=== PATIENT | male | born 1985 | race Caucasian/White ===

== ENCOUNTER → 2024-10-09 | Outpatient (CLI) | payer MEDICAID, SELFPAY ==
--- NOTE | 2024-10-09 11:00 | XR_ITS ---
Examination: Testicular sonography complete TECHNIQUE: Grayscale sonographic images testes with assessment arterial inflow venous outflow Doppler spectral analysis carful analysis Exam date and time: October 09, 2024 1119 hours INDICATIONS: Intermittent testicular pain beginning 20 years ago post injury to the testicle FINDINGS: Right testis 4.8 cm epididymis 3.1 cm 7 mm right epididymal cyst Arterial flow testicle. No testicular mass Left testis 4.3 cm epididymis 2.8 cm Arterial flow testicle. No testicular mass Mild bilateral hydrocele IMPRESSION: No testicular torsion or testicular mass Bilateral epididymitis
== END | disposition home or self-care (01) ==
PROVIDERS: PCP Nurse Practitioner; Referring Provider Urology; Visit Provider Urology
DX: N45.1 Epididymitis (principal)
CPT/HCPCS: 76870

== ENCOUNTER → 2024-12-21 | Outpatient (BNVA) | payer MEDICAID, SELFPAY | END | disposition home or self-care (01) | PROVIDERS: PCP Nurse Practitioner; Referring Provider Nurse Practitioner; Visit Provider Urology | DX: Z30.2 Encounter for sterilization (principal); G25.0 Essential tremor; N50.3 Cyst of epididymis; E78.2 Mixed hyperlipidemia; E03.9 Hypothyroidism, unspecified; G24.9 Dystonia, unspecified; E66.9 Obesity, unspecified; Z68.35 Body mass index [BMI] 35.0-35.9, adult | CPT/HCPCS: 81003; 99212; G0463 ==